=== PATIENT | male | born 1995 ===

== ENCOUNTER 2017-10-12 16:55 | Emergency (ER) | payer OTHER ==
[2017-10-12 17:01] VITALS: BP 130/73; PULSE 88; RESP 16; TEMP 99.6; O2SAT 98
--- NOTE | 2017-10-12 17:17 | ED PDOC ---
Lower Extremity Pain/Injury Time Seen by Provider: 10/12/17 17:03 Chief Complaint (Nursing): Lower Extremity Problem/Injury Chief Complaint (Provider): Left leg pain History Per: Patient History/Exam Limitations: no limitations Onset/Duration Of Symptoms: Other (prior to arrival) Current Symptoms Are (Timing): Still Present Additional Complaint(s): 21 y/o male with no significant PMHx presents for evaluation of left leg pain. Patient states he was playing soccer today when he was kicked on his left leg. He is currently complaining of some pain and swelling to his left calf area. He reports he is able to ambulate but has pain when doing so. PMD: None Past Medical History Reviewed: Historical Data, Nursing Documentation, Vital Signs Vital Signs: Last Vital Signs Temp 99.6 F 10/12/17 16:59 Pulse 88 10/12/17 16:59 Resp 16 10/12/17 16:59 BP 130/73 10/12/17 16:59 Pulse Ox 98 10/12/17 16:59 - Medical History PMH: No Chronic Diseases - Surgical History Surgical History: No Surg Hx - Family History Family History: States: No Known Family Hx - Living Arrangements Living Arrangements: With Family - Social History Current smoker - smoking cessation education provided: No Alcohol: None Drugs: Denies - Home Medications Home Medications: Ambulatory Orders Medication Instructions Recorded Ibuprofen [Motrin Tab] 800 mg PO Q8 PRN #20 tab 10/12/17 - Allergies Allergies/Adverse Reactions: Allergies Allergy/AdvReac Type Severity Reaction Status Date / Time No Known Allergies Allergy Verified 10/12/17 17:01 Review of Systems ROS Statement: Except As Marked, All Systems Reviewed And Found Negative Musculoskeletal: Positive for: Leg Pain (left) Physical Exam - Reviewed Nursing Documentation Reviewed: Yes Vital Signs Reviewed: Yes - Physical Exam Appears: Positive for: Well, Non-toxic, No Acute Distress Skin: Positive for: Normal Color. Negative for: Rash Eye Exam: Positive for: Normal appearance Back: Negative for: Vertebral Tenderness Extremity: Positive for: Tenderness (mild swelling and tenderness to left calf, no disruption to contour of gastroc muscle, no ecchymosis to calf region, achilles tendon intact, normal distal sensation, full rom of left ankle, knee and hip) Neurologic/Psych: Positive for: Alert, Oriented - ECG O2 Sat by Pulse Oximetry: 98 (RA) Pulse Ox Interpretation: Normal - Other Rad L tib/fib x-ray X-Ray: Interpreted by Me, Viewed By Me X-Ray Interpretation: no fx, no dis Medical Decision Making Medical Decision Makin:11 Impression: 21 y/o male with left leg pain Plan: -X-ray left tibula and fibula -Tylenol 975mg PO -Motrin 600mg PO Patient states pain is better after meds given in ED. He is aware of all diagnostic testing results. All questions answered. Patient was offered crutches but he declined. He states that he has apparent home that he can use. Rx motrin. Patient was referred to clinic for follow up. Scribe Attestation: Documented by Maury Casillas, acting as a scribe for Liza Dan PA-C. Provider Scribe Attestation: All medical record entries made by the scribe were at my direction and personally dictated by me. I have reviewed the chart and agree that the record accurately reflects my personal performance of the history, physical exam, medical decision making, and the department course for this patient. I have also personally directed, reviewed, and agree with the discharge instructions and disposition. Disposition - Clinical Impression Clinical Impression: Strain of calf muscle, Contusion of leg - Patient ED Disposition Is Patient to be Admitted: No Counseled Patient/Family Regarding: Studies Performed, Diagnosis, Need For Followup, Rx Given - Disposition Referrals: Dorina Tay MD [Staff Provider] - [facility] [Outside] Disposition: Routine/Home Disposition Time: 18:12 Condition: STABLE Additional Instructions: Ice, rest and elevate affected area. Take prescription meds as directed as needed for pain. Follow-up with clinic or orthopedist for any persistent symptoms. Prescriptions: Ibuprofen [Motrin Tab] 800 mg PO Q8 PRN #20 tab PRN Reason: Pain, Moderate (4-7) Instructions: Lower Extremity Muscle Strain (DC), Contusion (DC) Forms: [employer] [facility] (Serbian), [facility] School/Work Excuse
--- NOTE | 2017-10-13 10:37 | RAD ---
PROCEDURE: Radiographs of the left tibia and fibula. HISTORY: trauma COMPARISON: None available. TECHNIQUE: Frontal and lateral views obtained. FINDINGS: BONES: No fracture or destructive lesion. JOINT SPACES: Unremarkable. OTHER FINDINGS: None. IMPRESSION: Unremarkable radiographs of the left tibia and fibula.
== END 2017-10-12 18:26 | disposition home or self-care (01) ==
LOC: H.ER 16:55
DX: S86.812A Strain of other muscle(s) and tendon(s) at lower leg level, left leg, initial encounter (principal); S80.12XA Contusion of left lower leg, initial encounter; W22.8XXA Striking against or struck by other objects, initial encounter; Y92.322 Soccer field as the place of occurrence of the external cause